=== PATIENT | female | born 1990 | race Caucasian/White ===

== ENCOUNTER 2016-11-03 15:48 | Emergency (ER) | payer OTHER ==
--- NOTE | 2016-11-03 16:18 | EDPHY ---
H & P Smoking Status: Current every day smoker Time Seen by Provider: 11/03/16 16:05 HPI/ROS: CHIEF COMPLAINT: Sore throat HISTORY OF PRESENT ILLNESS: 26-year-old immunocompetent female in the emergency department via private vehicle complaining of 2 days of sore throat. Seen at [facility] diagnosis strep pharyngitis for concerns over peritonsillar abscess. PHYSICAL EXAM (Prior to examination, patient consented to physical exam, hands were washed and my usual and customary physical exam procedures followed) 1) GENERAL: Well-developed, well-nourished, alert and oriented. Appears to be in no acute distress. 2) HEAD: Normocephalic 3) HEENT: sclera anicteric. Bilateral tonsils are enlarged, exudative, symmetrical. No pointing of the uvula. Mild trismus is noted. No drooling. No nuchal rigidity. Positive tender submandibular adenopathy. 4) LUNGS: Breathing comfortably. (Esperanza Shafer) Constitutional: Initial Vital Signs Temperature (C) 38 C 11/03/16 15:51 Heart Rate 140 H 11/03/16 15:51 Respiratory Rate 22 H 11/03/16 15:51 Blood Pressure 105/92 H 11/03/16 15:51 O2 Sat (%) 98 11/03/16 15:51 O2 Delivery Mode Room Air Allergies/Adverse Reactions: Latex, Natural Rubber Allergy (Verified 11/03/16 15:51) Home Medications: Medication Instructions Recorded Clindamycin HCl [Clindamycin] 300 mg PO TID 7 Days 11/03/16 Effexor 11/03/16 Hydrocodone/APAP 5/325 [Beulah 1 tab PO Q6 PRN #15 tab 11/03/16 5/325 (RX)] methylPREDNISolone [Medrol Dose 4 mg PO DAILY #1 ea 11/03/16 Larry] MDM/Departure - MDM Medications Given: Discontinued Medications Benzocaine (Hurricaine [place]) 2 each MM EDNOW ONE Stop: 11/03/16 16:20 Last Admin: 11/03/16 16:21 Dose: 2 each ED Course/Re-evaluation: 4:17 p.m.: Phone consultation with the ENT GABBI Fernandez who will come to ER to evaluate patient 4:35 p.m. Otolaryngology has consulted on the patient in theemergency department, thinks unlikely patient has a peritonsillar abscess. Recommended Medrol Dosepak, clindamycin, follow up in office next week (today is Sunday). In the meantime usual customary pharyngitis/tonsillitis precautions instructions provided. (Esperanza Shafer) This patient was examined and treated by the physician administrative assistant. I have reviewed and agree with the documentation. I am the secondary supervising physician. (Shweta Jacob) - Depart Disposition: Home, Routine, Self-Care Clinical Impression: Acute streptococcal pharyngitis Condition: Good Instructions: Strep Throat (ED) Additional Instructions: Return to the ER immediately if you cannot swallow, have drooling, fevers, neck stiffness, cannot open your jaw, or any other symptoms that concern you. Stand Alone Forms: School Excuse Prescriptions: Clindamycin HCl [Clindamycin] 300 mg PO TID 7 Days methylPREDNISolone [Medrol Dose Larry] 4 mg PO DAILY #1 ea Hydrocodone/APAP 5/325 [Beulah 5/325 (RX)] 1 tab PO Q6 PRN #15 tab PRN Reason: Pain, Severe Referrals: Erin Fernandez PA [Physician Residential Leasing Agent] - 2-3 days, call for appt.
[2016-11-03] MEDS ORDERED: BENZOCAINE UNIT DOSE SPRAY HURRICAINE MM ONE (16:19)
[2016-11-03 16:24] VITALS: RESP 16
[2016-11-03 16:52] VITALS: BP 128/80; PULSE 128; TEMP 99.5; O2SAT 96
--- NOTE | 2016-11-03 21:10 | GCON ---
[f rep st] CONSULTATION CHIEF COMPLAINT: Possible peritonsillar abscess. HISTORY OF PRESENT ILLNESS: The patient is 26-year-old female who presents to the emergency room [facility] with a severe sore throat that began yesterday. She notes it is difficult to eat and drink. She notes no fevers. She tends to have problems with recurrent strep tonsillitis. She usually gets infe ctions about 1 to 2 times a year. She has been better over recent times. The patient notes no otalg ia and no nasal symptoms. PAST MEDICAL HISTORY: Negative. ALLERGIES: No known drug allergies. SOCIAL HISTORY: Noncontributory. PHYSICAL EXAMINATION: GENERAL: The patient is alert and oriented, lying in a bed and in no acute di stress. HEENT: Head atraumatic, normocephalic. Ears were clear. Nose was clear. Oral cavity and pharynx with 4+ exudative erythematous tonsils. No signs of peritonsillar erythema or fullness is ap preciated. NECK: With some shotty adenopathy. ASSESSMENT/PLAN: Patient with an acute severe tonsillitis. They are currently giving her Decadron. I have asked them to give her a dose of clindamycin 600 mg and send her home on clindamycin and a fe w more days of Decadron. Thank you for allowing us to participate in her care. Should the patient develop any worsening sympt oms, she can contact us. /[id number]/MODL
== END 2016-11-03 16:52 | disposition home or self-care (01) ==
DX: J02.0 Streptococcal pharyngitis (principal); F17.200 Nicotine dependence, unspecified, uncomplicated; Z91.040 Latex allergy status